=== PATIENT | male | born 1940 | race Caucasian/White ===

== ENCOUNTER 2021-10-17 23:03 | Inpatient (IN) | payer MEDICARE ==
[~2021-10-17] VITALS: Ht 175.3 cm; Wt 78.0 kg
[2021-10-17 23:52] LABS: HEMOGLOBIN 14.6 gm/dl (14.0-17.5); RED BLOOD COUNT 4.87 M/UL (4.20-5.50); WHITE BLOOD COUNT 9.5 K/UL (4.5-11.0)
[2021-10-18] MEDS ORDERED: ASPIRIN EC81 MG PO (11:52)
[2021-10-18] MEDS ORDERED: AMLODIPINE BESY10 MG PO (12:17)
[2021-10-18] MEDS ORDERED: LEXAPRO10 MG PO (12:18)
[2021-10-18] MEDS ORDERED: LOVASTATIN20 MG PO (12:18)
[2021-10-18] MEDS ORDERED: CARVEDILOL25 MG PO (12:19)
[2021-10-18] MEDS ORDERED: FUROSEMIDE40 MG PO (12:19)
[2021-10-18] MEDS ORDERED: LOSARTAN-HCTZ1 EACH PO (12:19)
[2021-10-18] MEDS ORDERED: PROTONIX40 MG PO (12:20)
[2021-10-19 06:47] LABS: WHITE BLOOD COUNT 8.2 K/UL (4.5-11.0)
[2021-10-19 07:12] LABS: HEMOGLOBIN 11.8 gm/dl (14.0-17.5)
[2021-10-19 07:14] LABS: BUN/CREATININE RATIO 22 (0-10)
[2021-10-20 06:45] LABS: HEMOGLOBIN 11.3 gm/dl (14.0-17.5); RED BLOOD COUNT 3.81 M/UL (4.20-5.50); WHITE BLOOD COUNT 6.9 K/UL (4.5-11.0)
[2021-10-20 07:21] LABS: BUN/CREATININE RATIO 17 (0-10)
[2021-10-21 06:32] LABS: HEMOGLOBIN 11.3 gm/dl (14.0-17.5); RED BLOOD COUNT 3.9 M/UL (4.20-5.50); WHITE BLOOD COUNT 7.1 K/UL (4.5-11.0)
[2021-10-21 06:48] LABS: BUN/CREATININE RATIO 17 (0-10)
[2021-10-22 03:27] LABS: HEMOGLOBIN 11.5 gm/dl (14.0-17.5); RED BLOOD COUNT 3.9 M/UL (4.20-5.50); WHITE BLOOD COUNT 7.7 K/UL (4.5-11.0)
[2021-10-22 04:46] LABS: BUN/CREATININE RATIO 19 (0-10)
--- NOTE | 2021-10-22 10:18 | NUR ---
Patient remained off nasal cannula for about 20 minutes and O2 Sat remained at 90%. Upon ambulation without Oxygen from the cannula the patient dropped to 82% before being placed back on 02.
[2021-10-22 10:35] LABS: BORDETELLA PARAPERTUSSIS Not Detected (Not Detectd); BORDETELLA PERTUSSIS Not Detected (Not Detectd); CHLAMYDIA PNEUMONIAE Not Detected (Not Detectd); CORONAVIRUS HKU1 Not Detected (Not Detectd); CORONAVIRUS NL63 Not Detected (Not Detectd); CORONAVIRUS OC43 Not Detected (Not Detectd); CORONOAVIRUS 229E Not Detected (Not Detectd); HUMAN METAPNEUMOVIRUS Not Detected (Not Detectd); HUMAN RHINOVIRUS/ENTEROVIRUS Not Detected (Not Detectd); INFLUENZA A Not Detected (Not Detectd); INFLUENZA B Not Detected (Not Detectd); MYCOPLASMA PNEUMONIAE Not Detected (Not Detectd); PARAINFLUENZA VIRUS 1 Not Detected (Not Detectd); PARAINFLUENZA VIRUS 2 Not Detected (Not Detectd); PARAINFLUENZA VIRUS 3 Not Detected (Not Detectd); PARAINFLUENZA VIRUS 4 Not Detected (Not Detectd); RESPIRATORY SYNCYTIAL VIRUS Not Detected (Not Detectd)
[2021-10-22 11:59] LABS: SARS-CoV-2 NOT DETECTED (Not Detectd)
[2021-10-22] MEDS ORDERED: IPRAT-ALBUT 0.5-3 ML NEB (14:33)
[2021-10-22] MEDS ORDERED: BUDESONIDE0.5 MG/2 M NEB (14:33)
[2021-10-22] MEDS ORDERED: AMOX TR-K CLV1 EAC4 PO (14:33)
[2021-10-22] MEDS ORDERED: PHENERGAN 12.12.5 M1 PO (14:33)
[2021-10-22] MEDS ORDERED: K-TAB ER20 MEQ PO ×2 (14:33→15:59)
[2021-10-22] MEDS ORDERED: LEVOFLOXACIN750 MG PO (14:33)
[2021-10-22] MEDS ORDERED: PAIN RELIEF650 MG PO (15:58)
[2021-10-22] MEDS ORDERED: LACTINEX TABLET1 EA PO (16:43)
== END 2021-10-22 17:45 | disposition home or self-care (01) | DRG 417 ==
LOC: ER1 23:03 → MED SURG 4 10-18 04:58 → CDU 10-18 04:58 → MED SURG 4 10-18 13:45
PROVIDERS: Internal Medicine; Physician Assistant; ADMIT Internal Medicine
PROC: 0FT44ZZ Resection of Gallbladder, Percutaneous Endoscopic Approach (ICD-10-PCS; 2021-10-20)
PROC: B24BZZZ Ultrasonography of Heart with Aorta (ICD-10-PCS; principal; 2021-10-22)
DX: K80.00 Calculus of gallbladder with acute cholecystitis without obstruction (principal); J96.01 Acute respiratory failure with hypoxia; J15.9 Unspecified bacterial pneumonia; J98.11 Atelectasis; I10 Essential (primary) hypertension; K82.A1 Gangrene of gallbladder in cholecystitis; E78.5 Hyperlipidemia, unspecified; I35.1 Nonrheumatic aortic (valve) insufficiency; F41.9 Anxiety disorder, unspecified; F32.A Depression, unspecified; E87.70 Fluid overload, unspecified; E87.6 Hypokalemia; D69.6 Thrombocytopenia, unspecified; E86.0 Dehydration; Z95.4 Presence of other heart-valve replacement; Z98.890 Other specified postprocedural states; Z79.899 Other long term (current) drug therapy; Z79.82 Long term (current) use of aspirin
CPT/HCPCS: ECHO; 36415; 71045; 71046; 76705; 80053; 81001; 82550; 82553; 83735; 84132; 84484; 85025; 85027; 85049; 87633; 93005; 93306; 94640; 94760; 96365; 96366; 96372; 96374; 96375; 96376; 99285; C1729; G0378; J1650; J1940; J2185; J2270; J2405; J2543; J2704; J2710; J3010; J3480; J7030; Q9967